=== PATIENT | female | born 1985 | race Caucasian/White ===

== ENCOUNTER 2017-06-29 09:57 | Emergency (ER) | payer OTHER ==
[~2017-06-29] VITALS: Ht 165.1 cm; Wt 45.0 kg
[2017-06-29 09:58] VITALS: BP 121/71; PULSE 73; RESP 15; TEMP 98.2; O2SAT 98
[2017-06-29 11:41] VITALS: BP 119/74; PULSE 76; RESP 14; TEMP 98; O2SAT 100
--- NOTE | 2017-06-29 12:02 | PD ---
HPI Chief Complaint: Headache Time Seen by Provider: 11:46 Travel History International Travel<30 days: No Contact w/Intl Traveler<30days: No Traveled to known affect area: No History of Present Illness HPI Patient is a 32-year-old female who presents to emergency room with complaints of a headache. Patient reports that around 8:00 this morning, a piece of plexiglass fell on top of her head. Denies any LOC. Reports that she felt nauseous after the incident, denies any vomiting. Patient was seen in urgent care clinic this morning and was referred to the emergency for a ct of her head. [facility] Past Medical History Medical History: Denies Significant Hx ?: Not Past Surgical History Surgical History: No Previous Surgery Social History Alcohol Use: No Tobacco Use: No Substance Use: No Allergies-Medications (Allergen,Severity, Reaction): Coded Allergies: No Known Allergies (Unverified , 06/29/17) Reported Meds & Prescriptions Reported Meds & Active Scripts Active No Active Prescriptions or Reported Medications Review of Systems General / Constitutional: No: Fever Eyes: No: Visual changes HENT: Positive: Headaches Cardiovascular: No: Chest Pain or Discomfort Respiratory: No: Shortness of Breath Gastrointestinal: No: Abdominal Pain Genitourinary: No: Dysuria Musculoskeletal: No: Pain Skin: No Rash Neurologic: No: Weakness Psychiatric: No: Depression Endocrine: No: Polydipsia Hematologic/Lymphatic: No: Easy Bruising Physical Exam Narrative GENERAL: NAD, Nontoxic SKIN: Focused skin assessment warm/dry. HEAD: Atraumatic. Normocephalic. EYES: Pupils equal and round. No scleral icterus. No injection or drainage. ENT: No nasal bleeding or discharge. Mucous membranes pink and moist. NECK: Trachea midline. No JVD. CARDIOVASCULAR: Regular rate and rhythm. No murmur appreciated. RESPIRATORY: No accessory muscle use. Clear to auscultation. Breath sounds equal bilaterally. GASTROINTESTINAL: Abdomen soft, non-tender, nondistended. Hepatic and splenic margins not palpable. MUSCULOSKELETAL: No obvious deformities. No clubbing. No cyanosis. No edema. NEUROLOGICAL: Awake and alert. No obvious cranial nerve deficits. Motor grossly within normal limits. Normal speech. CN 2-12 grossly intact with no neurological deficits PSYCHIATRIC: Appropriate mood and affect; insight and judgment normal. Data Data Last Documented VS Vital Signs Date Time Temp Pulse Resp B/P Pulse Ox O2 Delivery O2 Flow Rate FiO2 06/29/17 11:41 98.0 76 14 119/74 100 Room Air Orders Ed Urine Pregnancytest Poc (06/29/17 11:46) Ct Brain W/O Iv Contrast(Rout) (06/29/17 11:46) Acetaminophen (Tylenol) (06/29/17 12:15) MDM Medical Decision Making Medical Screen Exam Complete: Yes Emergency Medical Condition: Yes Interpretation(s) Vital Signs Date Time Temp Pulse Resp B/P Pulse Ox O2 Delivery O2 Flow Rate FiO2 06/29/17 11:41 98.0 76 14 119/74 100 Room Air 06/29/17 09:58 98.2 73 15 121/71 98 Differential Diagnosis Differential includes concussion, intracranial hemorrhage though unlikely Narrative Course 32-year-old female who presents to emergency room with complaints of headache after a plexiglass fell on top of her head this morning at fell on top of her head this morning. Patient was sent to the ER for CT of her head. Patient currently is not on any anticoagulants. Patient with normal neurological exam. CT of the head ordered. Last Impressions Head CT 06/29/17 1146 Signed Impressions: Service Date/Time: Thursday, June 29, 2017 12:24 - CONCLUSION: Normal examination for a patient of this age. Juan Pavon MD I reviewed CT report with patient, she is feeling much better. She will return to ER as needed. She will follow up with her primary care doctor Diagnosis Primary Impression: Head injury Qualified Code: S09.90XA - Injury of head, initial encounter Patient Instructions: General Instructions Departure Forms: Tests/Procedures, Work Release Enter return to work date: Jul 01, 2017 Additional Instructions: Please follow up with your primary care doctor Return to ER as needed Scripts No Active Prescriptions or Reported Meds Disposition: 01 DISCHARGE HOME Condition: Stable Brooke Tolbert DO Jun 29, 2017 12:02
[2017-06-29] MEDS ORDERED: ACETAMINOPHEN 325 MG TAB PO ONE (12:15)
--- NOTE | 2017-06-29 12:40 | RADRPT ---
EXAM DATE/TIME: 06/29/2017 12:24 [facility] COMPARISON: No previous studies available for comparison. INDICATIONS : Plexiglass light fixture fell on her head this morning. Cephalgia. RADIATION DOSE: 27.23 CTDIvol (mGy) MEDICAL HISTORY : None SURGICAL HISTORY : None. ENCOUNTER: Initial ACUITY: 1 day PAIN SCALE: 8/10 LOCATION: cranial TECHNIQUE: Multiple contiguous axial images were obtained of the head. Using automated exposure control and adj ustment of the mA and/or kV according to patient size, radiation dose was kept as low as reasonably a chievable to obtain optimal diagnostic quality images. DICOM format image data is available electro nically for review and comparison. FINDINGS: CEREBRUM: The ventricles are normal for age. No evidence of midline shift, mass lesion, hemorrhage or acute in farction. No extra-axial fluid collections are seen. POSTERIOR FOSSA: The cerebellum and brainstem are intact. The 4th ventricle is midline. The cerebellopontine angle i s unremarkable. EXTRACRANIAL: The visualized portion of the orbits is intact. SKULL: The calvaria is intact. No evidence of skull fracture. CONCLUSION: Normal examination for a patient of this age. Juan Pavon MD on June 29, 2017 at 12:37 Board Certified Radiologist. This report was verified electronically.
== END 2017-06-29 13:42 | disposition home or self-care (01) ==
LOC: NEPD 09:57
DX: S09.90XA Unspecified injury of head, initial encounter (principal); W22.8XXA Striking against or struck by other objects, initial encounter
CPT/HCPCS: 70450; 84703; 99284